=== PATIENT | male | born 1975 | race Hispanic/Latino ===

== ENCOUNTER 2020-12-15 13:10 | Emergency (ER) | payer OTHER ==
[~2020-12-15] VITALS: Ht 170.2 cm; Wt 104.8 kg
[2020-12-15 15:11] VITALS: BP 132/92
== END 2020-12-15 15:42 | disposition home or self-care (01) ==
LOC: EDH 13:10
DX: Z04.1 Encounter for examination and observation following transport accident (principal); Z53.21 Procedure and treatment not carried out due to patient leaving prior to being seen by health care provider